=== PATIENT | female | born 1965 | race Caucasian/White ===

== ENCOUNTER 2018-08-16 12:21 | Observation (INO) ==
--- NOTE | 2018-08-15 20:40 | MH ---
cc: Tyler Marcos MD DATE OF ADMISSION: 08/16/2018 ADMITTING DIAGNOSES: Menorrhagia, dysmenorrhea, uterine fibroids. HISTORY OF PRESENT ILLNESS: The patient is a 52-year-old white female, para 2-0-2-2, who has utilized OCPs for over 20 years for menstrual control to good effect. Over the last year, she has had increasing menorrhagia and dysmenorrhea refractory to changing the pill and medical management. Her Pap smear was normal. A pelvic ultrasound on 07/03/2018 showed fibroids affecting the endometrium. Endometrial biopsy was benign. She is now admitted for a hysterectomy. PAST SURGICAL HISTORY: None. MEDICATIONS: OCPs. ALLERGIES: IODINE, CODEINE, BENZOCAINE AND BENADRYL. TRANSFUSIONS: None. OBSTETRIC HISTORY: She had 2 spontaneous vaginal deliveries and 2 miscarriages. SOCIAL HISTORY: She is , employed. Alcohol, tobacco and drugs are none. FAMILY HISTORY: Noncontributory. REVIEW OF SYSTEMS: Negative. PHYSICAL EXAMINATION: GENERAL: This is a well-nourished, well-developed white female. VITAL SIGNS: Stable. HEENT: Normal. CHEST: Clear. HEART: Regular rate. BREASTS: Symmetrical. ABDOMEN: Benign. PELVIC: Vagina is normal. Cervix normal. The uterus is enlarged to about 12 weeks' size. Adnexa nonpalpable. ASSESSMENT: As above. PLAN: She is now admitted for a laparoscopy with planned LASH-BSO, possible CHRIS-BSO. While in the office, the risks, benefits and complications were explained and accepted. MD ISA Connelly/kath , 07:43 PM , 07:49 PM
[2018-08-16] MEDS ORDERED: ceFAZolin 2 GM Premix Inj 2 GM/50 ML PIGGYBACK IV.SIG ONE (13:17)
[2018-08-16] MEDS ORDERED: Bupivacaine Liposomal PF 1.3% Inj 20 ML Vial ONE (13:57)
[2018-08-16] MEDS ORDERED: Chlorhexidine Gluconate 2% 1 Pack (2 Cloths) TOPICAL SCH (13:59)
[2018-08-16] MEDS ORDERED: Metoprolol Tartrate 25 MG Tablet PO SCH (13:59)
[2018-08-16] MEDS ORDERED: Sodium Chlor 0.9% Inj 500 ML IV.SIG SCH (14:00)
[2018-08-16] MEDS ORDERED: fentaNYL Citrate Inj 250 MCG/5 ML Ampul ONE (14:04)
[2018-08-16] MEDS ORDERED: ceFAZolin 2 GM IV; once IV.SIG SCH (14:15)
[2018-08-16] MEDS ORDERED: Neostigmine Inj 5 MG/5 ML Syringe IV.PUSH ONE (15:00)
[2018-08-16] MEDS ORDERED: Glycopyrrolate Inj 1 MG/5 ML Syringe IV.PUSH ONE (15:00)
[2018-08-16] MEDS ORDERED: Zolpidem Tartrate 5 MG Tablet PO PRN (16:29)
[2018-08-16] MEDS ORDERED: Ketorolac Inj 30 MG/ML (IVP) Vial IV.PUSH ONE (16:30)
[2018-08-16] MEDS ORDERED: Ketorolac Inj 30 MG/ML (IVP) Vial IM ONE (16:30)
[2018-08-16] MEDS ORDERED: KCL 20 mEq/D5W/NaCl 0.45% Inj 1,000 ML ONE (16:54)
[2018-08-16] MEDS ORDERED: *Meperidine Inj 25 MG/ML Vial PERIprocedural Use ONLY ONE (16:58)
[2018-08-16] MEDS: KCL 20 mEq/D5W/NaCl 0.45% Inj 1,000 ML IV.CONT SCH (17:00)
[2018-08-16] MEDS ORDERED: Ketorolac Inj 30 MG/ML (IVP) Vial IV.PUSH SCH (17:00)
--- NOTE | 2018-08-16 17:01 | MP ---
cc: Tyelr Marcos MD DATE OF OPERATION: 08/16/2018 PREOPERATIVE DIAGNOSES: Menorrhagia, dysmenorrhea with multiple fibroids. POSTOPERATIVE DIAGNOSES: Menorrhagia, dysmenorrhea with multiple fibroids. PROCEDURE PERFORMED: LASH with bilateral salpingo-oophorectomy. ANESTHESIA: General, ET. SURGEON: Tyler aMrcos MD DRAG CAR RACER: MARIA DE JESUS Jerome ESTIMATED BLOOD LOSS: 100 mL FLUIDS: 1 L crystalloid. OBJECTIVE FINDINGS: Following induction of adequate general endotracheal anesthesia, the patient was prepped and draped supine on the operating table in dorsal lithotomy position in sterile fashion, with the bladder drained with Esteves catheterization. The abdomen opened through a 3 cm curvilinear infraumbilical incision using a knife to cut down through skin to the fascia. Peritoneum opened bluntly and the mini GelPort placed. Laparoscope inserted. A 5 port placed in left lower quadrant and an AirSeal on the right. Pelvic contents with the uterus about 12-week size, multiple fibroids, normal tubes, normal ovaries, normal cul-de-sacs, normal liver edge. Working first on the left, harmonic scalpel was used to take down the left ovarian pedicle, left round ligament, left broad ligament, left bladder flap, and the left uterine vessels and same on the right. Harmonic scalpel was now used to amputate the fundus from the cervix, taking out the central portion of the cervix in the process to minimize the risk of post-procedure bleeding. The uterus, tubes, ovaries, and portion of cervix were placed in the pouch and extracted through the GelPort. Irrigation was performed. No bleeding was evident. Ureters were inspected, good peristalsis. A #2-0 Vicryl and sterile Stratafix was used to close the cuff in running fashion. Low pressure test with no bleeding. The ureter was inspected again for good bilateral peristalsis. The operative site was closed with Tisseel. GelPort was removed. Peritoneum closed with running 2-0 Vicryl. GelPort site was then removed, and the peritoneum was closed with running 2-0 Vicryl, the fascia with a running locking stitch of 0 Vicryl, corner and midline tied, subcutaneous with 3-0 Vicryl, and the skin with a running subcuticular 3-0 Monocryl. The scope was now reinserted through lower port, used and checked the GelPort site, which was intact with no entrapment or bleeding. Pelvis inspected. No bleeding. The scope was removed. Gas was allowed to escape. Ports were removed and sutured with 3-0 Monocryl. Dermabond applied. All counts were correct, and the patient was awakened and taken to the recovery room in good condition. MD ISA Connelly/makenna , 04:38 PM , 04:44 PM
[2018-08-16] MEDS ORDERED: *Promethazine Inj 25 MG/ML Vial PERIprocedural use ONLY ONE (17:04)
[2018-08-16 17:13] LABS: Hematocrit 40.9 % (35.0-46.0); Hemoglobin 13.7 gm/dL (11.6-15.3); Mean Corpuscular HGB Conc 33.6 % (32.0-36.0); Mean Corpuscular Hemoglobin 30.6 pg (27.0-34.0); Mean Corpuscular Volume 91.1 fL (80.0-100.0); Mean Platelet Volume 7.8 fL (7.0-11.0); Red Blood Count 4.49 mil/mm3 (4.00-5.30); White Blood Count 8.4 th/mm3 (4.0-11.0)
[2018-08-16] MEDS ORDERED: HYDROmorphone PF Inj 2 MG/ML Vial IV.PUSH PRN (17:30)
[2018-08-16] MEDS: Docusate Sodium 100 MG Capsule PO SCH (21:27)
[2018-08-17] MEDS: KCL 20 mEq/D5W/NaCl 0.45% Inj 1,000 ML IV.CONT SCH ×2 (01:49→09:52)
[2018-08-17 05:27] VITALS: TEMP 97.5
[2018-08-17 07:50] LABS: Baso % (Auto) 0.1 % (0.0-2.0); Eos % (Auto) 0.1 % (0.0-4.0); Hematocrit 40.9 % (35.0-46.0); Hemoglobin 14.1 gm/dL (11.6-15.3); Lymph # (Auto) 1.4 th/mm3 (1.0-4.8); Lymph % (Auto) 10.7 % (9.0-44.0); Mean Corpuscular HGB Conc 34.5 % (32.0-36.0); Mean Corpuscular Hemoglobin 30.7 pg (27.0-34.0); Mono # (Auto) 0.8 th/mm3 (0.0-0.9); Mono % (Auto) 6.1 % (0.0-8.0); Neut # (Auto) 10.6 th/mm3 (1.8-7.7); Platelet Count 326 th/mm3 (150-450); Red Blood Count 4.59 mil/mm3 (4.00-5.30); Red Cell Distribution Width 12.4 % (11.6-17.2); White Blood Count 12.8 th/mm3 (4.0-11.0)
[2018-08-17] MEDS: Docusate Sodium 100 MG Capsule PO SCH (08:01)
[2018-08-17 08:08] LABS: Calcium 8.5 mg/dL (8.5-10.1); Potassium 4.2 meq/L (3.5-5.1)
[2018-08-17 08:30] VITALS: BP 107/57; PULSE 69; RESP 17; O2SAT 100
== END 2018-08-17 10:32 | disposition home or self-care (01) ==
LOC: HSDI 12:21 → HSDC 12:21 → N07 18:38
PROVIDERS: ADMIT Obstetrics & Gynecology; ATTEND Obstetrics & Gynecology
PROC: LAPLASH (ICD-10-PCS; 2018-08-16 15:04)